=== PATIENT | male | born 1950 | race Two or more races ===

== ENCOUNTER 2018-10-14 11:57 | Outpatient (CLI) | payer OTHER | END 2018-10-14 17:00 | disposition home or self-care (01) | LOC: TOM 11:57 | DX: G44.221 Chronic tension-type headache, intractable (principal); I63.89 Other cerebral infarction ==

== ENCOUNTER → 2021-12-12 | Outpatient (CLI) | payer OTHER ==
[~2021-12-12] MED LIST: CHILDREN'S ASPI81 MG; CHILDREN'S ASPI81 MG PO; CILOSTAZOL100 MG PO; CLOPIDOGREL BIS75 MG; ENALAPRIL MALEA10 MG; ENALAPRIL MALEA10 MG NGT; EYE DROPS15 ML; GLIPIZIDE XL10 MG; GLIPIZIDE XL10 MG PO; GLUMETZA1000 MG; GRALISE600 MG PO; LEVO-T88 MCG; LEVO-T88 MCG PO; METFORMIN HCL1000 M2 PO; PAXIL20 MG; PAXIL20 MG PO; PLAVIX75 MG; SIMVASTATIN80 MG; SIMVASTATIN80 MG PO; VITAMIN D3125 MC1
== END | disposition home or self-care (01) ==
LOC: NUCLEAR 07:42
PROVIDERS: ATTEND Internal Medicine
DX: I65.23 Occlusion and stenosis of bilateral carotid arteries (principal)

== ENCOUNTER 2021-12-13 09:15 | Outpatient (CLI) | payer OTHER ==
[~2021-12-13 09:15] MED LIST changes: -CHILDREN'S ASPI81 MG PO; -CILOSTAZOL100 MG PO; -CLOPIDOGREL BIS75 MG; -ENALAPRIL MALEA10 MG NGT; -EYE DROPS15 ML; -GLIPIZIDE XL10 MG PO; -GRALISE600 MG PO; -LEVO-T88 MCG PO; -METFORMIN HCL1000 M2 PO; -PAXIL20 MG PO; -SIMVASTATIN80 MG PO; -VITAMIN D3125 MC1
[2021-12-13] MEDS ORDERED: PAXIL20 MG PO (11:59)
[2021-12-13] MEDS ORDERED: GLIPIZIDE XL10 MG PO (12:00)
[2021-12-13] MEDS ORDERED: SIMVASTATIN80 MG PO (12:00)
[2021-12-13] MEDS ORDERED: METFORMIN HCL1000 M2 PO (12:00)
[2021-12-13] MEDS ORDERED: ENALAPRIL MALEA10 MG NGT (12:01)
[2021-12-13] MEDS ORDERED: LEVO-T88 MCG PO (12:01)
[2021-12-13] MEDS ORDERED: CHILDREN'S ASPI81 MG PO (12:01)
[2021-12-13] MEDS ORDERED: CILOSTAZOL100 MG PO (12:04)
[2021-12-13] MEDS ORDERED: GRALISE600 MG PO (12:05)
[2021-12-14] MEDS ORDERED: CLOPIDOGREL BIS75 MG (08:41)
[2021-12-14] MEDS ORDERED: VITAMIN D3125 MC1 (08:41)
[2021-12-14] MEDS ORDERED: EYE DROPS15 ML (08:42)
== END 2021-12-13 09:31 | disposition home or self-care (01) ==
LOC: TOM 09:15
PROVIDERS: ATTEND Internal Medicine
DX: I67.9 Cerebrovascular disease, unspecified (principal)

== ENCOUNTER → 2021-12-13 09:18 | Outpatient (CLI) | payer OTHER ==
[~2021-12-13 09:18] MED LIST changes: +CHILDREN'S ASPI81 MG PO; +CILOSTAZOL100 MG PO; +CLOPIDOGREL BIS75 MG; +ENALAPRIL MALEA10 MG NGT; +EYE DROPS15 ML; +GLIPIZIDE XL10 MG PO; +GRALISE600 MG PO; +LEVO-T88 MCG PO; +METFORMIN HCL1000 M2 PO; +PAXIL20 MG PO; +SIMVASTATIN80 MG PO; +VITAMIN D3125 MC1
== END | disposition home or self-care (01) ==
LOC: LAB 09:18
PROVIDERS: ATTEND Internal Medicine
DX: E11.9 Type 2 diabetes mellitus without complications (principal); I11.9 Hypertensive heart disease without heart failure

== ENCOUNTER 2021-12-13 11:38 | Inpatient (IN) | payer OTHER ==
[~2021-12-13] VITALS: Ht 167.6 cm; Wt 68.9 kg
[~2021-12-13 11:38] MED LIST changes: -CHILDREN'S ASPI81 MG PO; -CILOSTAZOL100 MG PO; -CLOPIDOGREL BIS75 MG; -ENALAPRIL MALEA10 MG NGT; -EYE DROPS15 ML; -GLIPIZIDE XL10 MG PO; -GRALISE600 MG PO; -LEVO-T88 MCG PO; -METFORMIN HCL1000 M2 PO; -PAXIL20 MG PO; -SIMVASTATIN80 MG PO; -VITAMIN D3125 MC1
[2021-12-13] MEDS ORDERED: PAXIL20 MG PO (11:59)
[2021-12-13] MEDS ORDERED: SIMVASTATIN80 MG PO (12:00)
[2021-12-13] MEDS ORDERED: METFORMIN HCL1000 M2 PO (12:00)
[2021-12-13] MEDS ORDERED: GLIPIZIDE XL10 MG PO (12:00)
[2021-12-13] MEDS ORDERED: CHILDREN'S ASPI81 MG PO (12:01)
[2021-12-13] MEDS ORDERED: ENALAPRIL MALEA10 MG NGT (12:01)
[2021-12-13] MEDS ORDERED: LEVO-T88 MCG PO (12:01)
[2021-12-13] MEDS ORDERED: CILOSTAZOL100 MG PO (12:04)
[2021-12-13] MEDS ORDERED: GRALISE600 MG PO (12:05)
[2021-12-14] MEDS ORDERED: CLOPIDOGREL BIS75 MG (08:41)
[2021-12-14] MEDS ORDERED: VITAMIN D3125 MC1 (08:41)
[2021-12-14] MEDS ORDERED: EYE DROPS15 ML (08:42)
== END 2021-12-27 14:13 | DRG 65 ==
LOC: ER 11:38 → ICU-2 23:25 → ICU 12-15 23:13 → MEDI 12-22 19:30
PROVIDERS: ADMIT Internal Medicine; ATTEND Internal Medicine
PROC: BW38YZZ Magnetic Resonance Imaging (MRI) of Head using Other Contrast (ICD-10-PCS; principal; 2021-12-13)
PROC: BW28ZZZ Computerized Tomography (CT Scan) of Head (ICD-10-PCS; 2021-12-18)
PROC: 02HV33Z Insertion of Infusion Device into Superior Vena Cava, Percutaneous Approach (ICD-10-PCS; 2021-12-27)
DX: I61.1 Nontraumatic intracerebral hemorrhage in hemisphere, cortical (principal); F05 Delirium due to known physiological condition; I11.9 Hypertensive heart disease without heart failure; I25.10 Atherosclerotic heart disease of native coronary artery without angina pectoris; I60.8 Other nontraumatic subarachnoid hemorrhage; E03.8 Other specified hypothyroidism; E78.5 Hyperlipidemia, unspecified; E11.65 Type 2 diabetes mellitus with hyperglycemia; F10.10 Alcohol abuse, uncomplicated; Z20.822 Contact with and (suspected) exposure to COVID-19; Z79.4 Long term (current) use of insulin
CPT/HCPCS: 70552

== ENCOUNTER 2022-03-13 18:15 | Emergency (ER) | payer OTHER ==
[~2022-03-13] VITALS: Ht 137.2 cm; Wt 67.6 kg
[~2022-03-13 18:15] MED LIST changes: +CHILDREN'S ASPI81 MG PO; +CILOSTAZOL100 MG PO; +CLOPIDOGREL BIS75 MG; +ENALAPRIL MALEA10 MG NGT; +EYE DROPS15 ML; +GLIPIZIDE XL10 MG PO; +GRALISE600 MG PO; +LEVO-T88 MCG PO; +METFORMIN HCL1000 M2 PO; +PAXIL20 MG PO; +SIMVASTATIN80 MG PO; +VITAMIN D3125 MC1
[2022-03-13] MEDS ORDERED: JARDIANCE10 MG PO (18:26)
[2022-03-13] MEDS ORDERED: PAROXETINE HCL20 MG PO (18:26)
[2022-03-13] MEDS ORDERED: QUETIAPINE FUMA25 MG PO (18:26)
[2022-03-13] MEDS ORDERED: GABAPENTIN300 M2 PO (18:27)
[2022-03-13] MEDS ORDERED: SYNTHROID88 MCG PO (18:27)
[2022-03-13] MEDS ORDERED: METFORMIN HCL1000 M3 PO (18:27)
[2022-03-13] MEDS ORDERED: LISINOPRIL20 MG PO (18:27)
[2022-03-13] MEDS ORDERED: GLIPIZIDE ER10 MG PO (18:27)
[2022-03-13] MEDS ORDERED: CENTRUM SILVER1 EAC2 PO (18:27)
== END 2022-03-13 20:41 | disposition home or self-care (01) ==
LOC: ER 18:15
DX: E11.42 Type 2 diabetes mellitus with diabetic polyneuropathy (principal); M79.662 Pain in left lower leg; E11.65 Type 2 diabetes mellitus with hyperglycemia; Z79.84 Long term (current) use of oral hypoglycemic drugs; I10 Essential (primary) hypertension; E03.9 Hypothyroidism, unspecified; Z86.73 Personal history of transient ischemic attack (TIA), and cerebral infarction without residual deficits; Z98.890 Other specified postprocedural states

== ENCOUNTER 2022-05-03 17:39 | Emergency (ER) | payer OTHER ==
[~2022-05-03] VITALS: Ht 167.6 cm; Wt 68.9 kg
[~2022-05-03 17:39] MED LIST changes: +CENTRUM SILVER1 EAC2 PO; +GABAPENTIN300 M2 PO; +GLIPIZIDE ER10 MG PO; +JARDIANCE10 MG PO; +LISINOPRIL20 MG PO; +METFORMIN HCL1000 M3 PO; +PAROXETINE HCL20 MG PO; +QUETIAPINE FUMA25 MG PO; +SYNTHROID88 MCG PO
== END 2022-05-03 19:24 | disposition home or self-care (01) ==
LOC: ER 17:39
DX: T81.30XA Disruption of wound, unspecified, initial encounter (principal); W07.XXXA Fall from chair, initial encounter; Z91.81 History of falling; Y93.9 Activity, unspecified; Y92.019 Unspecified place in single-family (private) house as the place of occurrence of the external cause; Z89.612 Acquired absence of left leg above knee; I10 Essential (primary) hypertension; E78.00 Pure hypercholesterolemia, unspecified; I70.202 Unspecified atherosclerosis of native arteries of extremities, left leg

== ENCOUNTER 2022-11-03 10:03 | Outpatient (CLI) | payer OTHER | END 2022-11-03 10:04 | disposition home or self-care (01) | LOC: LAB 10:03 | PROVIDERS: ATTEND Internal Medicine | DX: D64.9 Anemia, unspecified (principal); E11.9 Type 2 diabetes mellitus without complications; E78.2 Mixed hyperlipidemia; E03.8 Other specified hypothyroidism; N39.0 Urinary tract infection, site not specified ==

== ENCOUNTER 2023-04-20 14:25 | Emergency (ER) | payer OTHER ==
[~2023-04-20] VITALS: Ht 160 cm; Wt 77.1 kg
[2023-04-20] MEDS ORDERED: ALPRAZOLAM ODT0.5 MG (14:35)
[2023-04-20] MEDS ORDERED: ATORVASTATIN CA20 MG (14:35)
[2023-04-20] MEDS ORDERED: CARVEDILOL6.25 M1 (14:37)
[2023-04-20] MEDS ORDERED: ADULT LOW DOSE81 M1 (14:37)
[2023-04-20] MEDS ORDERED: PLAVIX75 MG (14:37)
[2023-04-20] MEDS ORDERED: SEROQUEL200 MG (14:37)
[2023-04-20] MEDS ORDERED: PENTOXIFYLLINE400 MG (14:38)
== END 2023-04-20 19:31 | disposition home or self-care (01) ==
LOC: ER 14:25
DX: R47.81 Slurred speech (principal); E11.9 Type 2 diabetes mellitus without complications; Z79.84 Long term (current) use of oral hypoglycemic drugs; I10 Essential (primary) hypertension; Z86.73 Personal history of transient ischemic attack (TIA), and cerebral infarction without residual deficits
CPT/HCPCS: 36415; 70450; 71045; 82803; 93005; 96365; 99284; J1100

== ENCOUNTER 2023-06-14 12:55 | Inpatient (IN) | payer OTHER ==
[~2023-06-14] VITALS: Ht 167.6 cm; Wt 64.4 kg
[~2023-06-14 12:55] MED LIST changes: +ADULT LOW DOSE81 M1; +ALPRAZOLAM ODT0.5 MG; +ATORVASTATIN CA20 MG; +CARVEDILOL6.25 M1; +PENTOXIFYLLINE400 MG; +SEROQUEL200 MG
[2023-06-14 15:08] LABS: HEMATOCRIT 39.5 % (39.0-48.0); HEMOGLOBIN 13.1 g/dL (13-16.00); MEAN CELL VOLUME 89.2 fL (80.0-100.00); MEAN CORPUSCULAR HEMOGLOBIN 29.5 pg (27.00-32.0); MEAN CORPUSCULAR HGB CONC 33.1 g/dl (32.0-36.0); PLATELET COUNT 341 K/uL (150-450); RED BLOOD COUNT 4.42 M/uL (4.00-6.00); RED CELL DISTRIBUTION WIDTH 13.2 % (11.5-14.5)
[2023-06-14 15:26] LABS: CALCIUM 9.1 mg/dL (8.5-10.1); CREATININE SERUM 1.69 mg/dL (0.70-1.30); GFR 40.32; POTASSIUM 4.38 mEq/L (3.5-5.1)
[2023-06-14 15:38] LABS: ABG PH 7.451 (7.35-7.45); ABG PO2 90.6 mmHg (80-100); ABG pCO2 34.5 mmHg (35-45); BASE EXCESS 0.1 mmol/l; BICARBONATE 23.5 mmol/l (23-25); SaO2 97.4 %; Tco2 24.5 mmol/l
[2023-06-14 15:47] LABS: allen test SATISFACTORY; o2 32 %; puncture site RADIAL RIGHT
[2023-06-14 17:21] LABS: URINE APPEARANCE Clear; URINE BILIRRUBIN Negative (NEGATIVE); URINE BLOOD Negative; URINE COLOR Yellow; URINE LEUKOCYTE Negative; URINE NITRATE Negative; URINE UROBILINOGEN 0.2 E.U./dl
[2023-06-14 17:24] LABS: URINE BACTERIA 11.3 uL (0.0-1933); URINE EPITHELIAL CELLS 4.6 uL (0.0-38.8); URINE WBC 2.9 uL (0.0-23.2)
[2023-06-14 17:43] LABS: URINE GLUCOSE >=1000 MG/DL (NEGATIVE); URINE PROTEIN 100 (NEGATIVE); URINE RBC 0.7 uL (0.0-20.8)
[2023-06-15 00:41] LABS: MAGNESIUM 2.1 mg/dL (1.8-2.4); PHOSPHOROUS 2.1 mg/dL (2.5-4.9)
[2023-06-15 00:42] LABS: C-REACTIVE PROTEIN 17.4 MG/DL (0.00-0.29)
[2023-06-15 00:44] LABS: INR 0.98; PARTIAL THROMBOPLASTIN TIME 31.9 SECONDS (22.0-34.0); PROTHROMBIN TIME 10.3 SECONDS (9.0-11.5)
[2023-06-16 07:47] LABS: HEMATOCRIT 32.3 % (39.0-48.0); MEAN CELL VOLUME 87.8 fL (80.0-100.00); MEAN CORPUSCULAR HEMOGLOBIN 30.1 pg (27.00-32.0); MEAN CORPUSCULAR HGB CONC 34.3 g/dl (32.0-36.0); PLATELET COUNT 368 K/uL (150-450); RED BLOOD COUNT 3.67 M/uL (4.00-6.00); RED CELL DISTRIBUTION WIDTH 13.3 % (11.5-14.5)
[2023-06-16 08:27] LABS: ALBUMIN 3.4 gm/dL (3.4-5.0); BILIRUBIN TOTAL 0.25 mg/dL (0.3-1.2); CALCIUM 8.2 mg/dL (8.5-10.1); CREATININE SERUM 1.07 mg/dL (0.70-1.30); FERRITIN 117.1 NG/ML (26-388); GFR 68.32; GLOBULINA 3.3 G/DL (2.4-3.5); MAGNESIUM 2.2 mg/dL (1.8-2.4); PHOSPHOROUS 2.5 mg/dL (2.5-4.9); POTASSIUM 3.81 mEq/L (3.5-5.1); TOTAL PROTEIN 6.7 gm/dL (6.4-8.2)
[2023-06-16 20:26] LABS: ABG PH 7.436 (7.35-7.45); ABG PO2 71.4 mmHg (80-100); ABG pCO2 30.3 mmHg (35-45); BICARBONATE 19.9 mmol/l (23-25); SaO2 94.6 %; Tco2 20.9 mmol/l
[2023-06-16 20:29] LABS: allen test SATISFACTORY; o2 21 %; puncture site RADIAL LEFT
[2023-06-18 07:05] LABS: HEMATOCRIT 34.8 % (39.0-48.0); MEAN CELL VOLUME 87.1 fL (80.0-100.00); MEAN CORPUSCULAR HEMOGLOBIN 30.1 pg (27.00-32.0); MEAN CORPUSCULAR HGB CONC 34.6 g/dl (32.0-36.0); PLATELET COUNT 410 K/uL (150-450); RED BLOOD COUNT 3.99 M/uL (4.00-6.00); RED CELL DISTRIBUTION WIDTH 13.5 % (11.5-14.5)
[2023-06-18 07:58] LABS: ALBUMIN 3.2 gm/dL (3.4-5.0); BILIRUBIN TOTAL 0.33 mg/dL (0.3-1.2); CALCIUM 8.5 mg/dL (8.5-10.1); CREATININE SERUM 1.03 mg/dL (0.70-1.30); GFR 71.39; GLOBULINA 3.4 G/DL (2.4-3.5); PHOSPHOROUS 2.5 mg/dL (2.5-4.9); POTASSIUM 4.62 mEq/L (3.5-5.1); TOTAL PROTEIN 6.6 gm/dL (6.4-8.2)
[2023-06-19 09:48] LABS: ABG PH 7.467 (7.35-7.45); ABG pCO2 32.1 mmHg (35-45)
[2023-06-19 09:49] LABS: ABG PO2 83.8 mmHg (80-100); BASE EXCESS -0.1 mmol/l; BICARBONATE 22.7 mmol/l (23-25); SaO2 96.9 %; Tco2 23.6 mmol/l; o2 21 %; puncture site BRADIAL RIGHT
[2023-06-20 08:34] LABS: FERRITIN 66.3 NG/ML (26-388)
[2023-06-20] MEDS ORDERED: CLOPIDOGREL BIS75 MG PO (11:47)
[2023-06-20] MEDS ORDERED: OSEL75CA PO (11:47)
[2023-06-20] MEDS ORDERED: LIPITOR40 M1 PO (11:47)
[2023-06-20] MEDS ORDERED: INTEGRA PLUS C1 EACH PO (11:47)
[2023-06-20] MEDS ORDERED: GLUMETZA1000 MG PO (11:48)
[2023-06-20] MEDS ORDERED: CARVEDILOL6.25 MG PO (11:48)
[2023-06-20] MEDS ORDERED: ZESTRIL40 M1 PO (11:48)
[2023-06-20] MEDS ORDERED: GLIPIZIDE XL2.5 MG PO (11:49)
[2023-06-20] MEDS ORDERED: LEVOTHYROXINE88 MCG PO (11:50)
== END 2023-06-20 17:00 | disposition home or self-care (01) | DRG 177 ==
LOC: ER 12:55 → SEC-K 22:20 → MEDJ 22:20
PROVIDERS: Emergency Medicine; General Practice; Internal Medicine Critical Care Medicine; ADMIT Internal Medicine; ATTEND Internal Medicine
PROC: 8E0ZXY6 Isolation (ICD-10-PCS; 2023-06-14)
PROC: BW24ZZZ Computerized Tomography (CT Scan) of Chest and Abdomen (ICD-10-PCS; 2023-06-14)
PROC: XW033E5 Introduction of Remdesivir Anti-infective into Peripheral Vein, Percutaneous Approach, New Technology Group 5 (ICD-10-PCS; principal; 2023-06-15)
PROC: 3E0F7GC Introduction of Other Therapeutic Substance into Respiratory Tract, Via Natural or Artificial Opening (ICD-10-PCS; 2023-06-15)
DX: U07.1 COVID-19 (principal); J10.00 Influenza due to other identified influenza virus with unspecified type of pneumonia; J12.82 Pneumonia due to coronavirus disease 2019; N17.9 Acute kidney failure, unspecified; R09.02 Hypoxemia; E11.9 Type 2 diabetes mellitus without complications; Z79.4 Long term (current) use of insulin; I73.9 Peripheral vascular disease, unspecified